=== PATIENT | male | born 1970 | race Native Hawaiian/Other Pacific Islander ===

== ENCOUNTER 2016-10-04 08:34 | Emergency (ER) | payer OTHER ==
[2016-10-04 09:08] VITALS: O2SAT 100
[2016-10-04] MEDS ORDERED: Sodium Chloride 0.9% 1,000 ML IV ONE (09:14)
--- NOTE | 2016-10-04 09:17 | C.PDOC ---
History Of Present Illness 45 y.o male with hx prior kidney stones c/o sudden onset constant left flank pain starting 2 hours ago that radiates occasionally to llq with nausea. denies vomiting, fever, chills, dysuria, hematuria. pt reports episode of hematuria about 10 days ago, and pmd sent him for a renal ultrasound, with no stone seen; and pt taking cipro daily since then. ultrasound from year prior showed 8 mm stone in kidney. Time Seen by Provider: 10/04/16 08:51 Chief Complaint (Nursing): Male Genitourinary History Per: Patient History/Exam Limitations: no limitations Onset/Duration Of Symptoms: Hrs (2) Current Symptoms Are (Timing): Worse Severity: Moderate Quality Of Discomfort: "Pain" Associated Symptoms: Nausea, Back Pain. denies: Fever, Chills, Vomiting Alleviating Factors: None Recent travel outside of the [place]: No Past Medical History Reviewed: Historical Data, Nursing Documentation, Vital Signs Vital Signs: Last Vital Signs Temp 98.2 F 10/04/16 12:45 Pulse 75 10/04/16 12:45 Resp 16 10/04/16 12:45 BP 128/63 10/04/16 12:45 Pulse Ox 100 10/04/16 12:45 - Medical History PMH: Kidney Stones, Chronic Kidney Disease Surgical History: No Surg Hx Family History: States: Unknown Family Hx - Social History Hx Alcohol Use: Yes Hx Substance Use: No Review Of Systems Constitutional: Negative for: Fever, Chills Cardiovascular: Negative for: Chest Pain Respiratory: Negative for: Cough, Shortness of Breath Gastrointestinal: Positive for: Nausea. Negative for: Vomiting, Abdominal Pain Musculoskeletal: Positive for: Back Pain (left flank) Skin: Negative for: Rash Neurological: Negative for: Weakness, Numbness Physical Exam - Physical Exam Appears: Non-toxic, Other (in obvious pain) Skin: Warm, Dry Head: Atraumatic, Normacephalic Neck: Normal ROM Chest: No Deformity, No Tenderness Cardiovascular: Rhythm Regular, No Murmur Respiratory: Normal Breath Sounds, No Rales, No Rhonchi, No Wheezing Gastrointestinal/Abdominal: Bowel Sounds, Soft, No Tenderness, No Distention, No Guarding, No Rebound Back: Normal Inspection, CVA Tenderness (left) Extremity: No Tenderness, No Pedal Edema, No Calf Tenderness Neurological/Psych: Oriented x3, Normal Speech, Normal Cognition ED Course And Treatment - Laboratory Results Result Diagrams: 10/04/16 10:02 10/04/16 10:02 O2 Sat by Pulse Oximetry: 100 (RA) Pulse Ox Interpretation: Normal - CT Scan/US CT - Abd & Pelvis Other Rad Studies (CT/US): Read By Radiologist, Radiology Report Reviewed CT/US Interpretation: PROCEDURE: CT Abdomen and Pelvis without intravenous contrast. HISTORY: left flank pain to groin, history of renal stones. COMPARISON: None. TECHNIQUE: Multiple contiguous axial images were performed through the abdomen and pelvis without intravenous contrast. Subsequently, sagittal and coronal reformatted images were obtained. This CT exam was performed using one or more of the following dose reduction techniques: Automated exposure control, adjustment of the mA and/or kV according to patient size, and/or use of iterative reconstruction technique. FINDINGS: LOWER THORAX : 1 millimeter subpleural nodule within the right middle lobe laterally. 3 millimeter nodule within the medial aspect of the right lower lobe. LIVER: Prominent liver with diffuse fatty infiltration. Small hypodensity in the right hepatic lobe measuring 5 millimeters, too small to adequately characterize. GALLBLADDER AND BILE DUCTS: Unremarkable. PANCREAS: Unremarkable. No gross lesion or ductal dilatation. SPLEEN: Unremarkable. ADRENALS: Unremarkable. No mass. KIDNEYS AND URETERS: Left Kidney: Moderate left renal hydroureteronephrosis with 4.2 millimeter calculus in the proximal to mid left ureter. Additional 3 millimeter calculus in the lower pole of the left kidney. VASCULATURE: Unremarkable. No aortic aneurysm. BOWEL: Under distended descending and sigmoid colon. APPENDIX: Unremarkable. Normal appendix. PERITONEUM: Unremarkable. No free fluid. No free air. LYMPH NODES: Unremarkable. No enlarged lymph nodes. BLADDER: Unremarkable. REPRODUCTIVE: Prominent and heterogeneous prostate. Clinical correlation. BONES: No acute fracture. OTHER FINDINGS: None. IMPRESSION: Moderate left renal hydroureteronephrosis with 4.2 millimeter calculus in the proximal to mid left ureter. Additional 3 millimeter calculus in the lower pole of the left kidney. Additional findings as above. Medical Decision Making Medical Decision Making: pt with hx of stones (kidney) with left flank pain; will get ua, labs, ct abdomen stone protocol, ivf, antiemetic 1140 am pt feeling much better after analgesic, no pain now, abdomen soft nd nt. 1231 pm pt feeling well. pt made aware of incidental findings on ct scan in lung an liver and given copy of ct results to show to pmd for further evaluation. will d/c pt with nsaids and flomax with urinary strainer and pmd and urology follow up. Disposition Counseled Patient/Family Regarding: Studies Performed, Diagnosis, Need For Followup, Rx Given - Disposition Referrals: Dusty Mac MD [Staff Provider] - Disposition: HOME/ ROUTINE Disposition Time: 12:33 Condition: STABLE Additional Instructions: Take pain medication every 6 hours (with food). Take Flomax as prescribed. Strain all urine and keep stone to bring to urologist when it passes. Call urologist to arrange for appointment. Drink increased fluids. Return to ER for any difficulty urinating, fever, worsening pain or other concerns. Prescriptions: Ibuprofen [Motrin] 600 mg PO Q6 #30 tab Tamsulosin [Flomax] 0.4 mg PO DAILY #6 cap Instructions: Kidney Stones (ED), Renal Colic (ED) - Clinical Impression Clinical Impression: Renal colic on left side, Kidney stone on left side
[2016-10-04] MEDS ORDERED: Sodium Chloride 0.9% 1,000 ML ONE (09:26)
[2016-10-04 10:08] LABS: BASO % 0.4 % (0.0-2.0); EOS % 0.1 % (0.0-4.0); HEMOGLOBIN 14.8 g/dL (12.0-18.0); LYMPH # 0.7 K/uL (1.0-4.3); MEAN CELL VOLUME 94.2 fL (80.0-94.0); MEAN CORPUSCULAR HEMOGLOBIN 31.1 pg (27.0-31.0); MEAN PLATELET VOLUME 7.1 fL (7.2-11.7); MONO # 0.5 K/uL (0.0-0.8); MONO % 4.1 % (0.0-10.0); NEUT # 10.3 K/uL (1.8-7.0); NEUT % 89.4 % (50.0-75.0); PLATELET COUNT 279 K/uL (130-400); RBC 4.76 Mil/uL (4.40-5.90); WHITE BLOOD COUNT 11.5 K/uL (4.8-10.8)
--- NOTE | 2016-10-04 10:09 | CT ---
PROCEDURE: CT Abdomen and Pelvis without intravenous contrast HISTORY: left flank pain to groin, history of renal stones COMPARISON: None. TECHNIQUE: Multiple contiguous axial images were performed through the abdomen and pelvis without intravenous contrast. Subsequently, sagittal and coronal reformatted images were obtained. This CT exam was performed using one or more of the following dose reduction techniques: Automated exposure control, adjustment of the mA and/or kV according to patient size, and/or use of iterative reconstruction technique. FINDINGS: LOWER THORAX: 1 millimeter subpleural nodule within the right middle lobe laterally. 3 millimeter nodule within the medial aspect of the right lower lobe. LIVER: Prominent liver with diffuse fatty infiltration. Small hypodensity in the right hepatic lobe measuring 5 millimeters, too small to adequately characterize. GALLBLADDER AND BILE DUCTS: Unremarkable. PANCREAS: Unremarkable. No gross lesion or ductal dilatation. SPLEEN: Unremarkable. ADRENALS: Unremarkable. No mass. KIDNEYS AND URETERS: Left Kidney: Moderate left renal hydroureteronephrosis with 4.2 millimeter calculus in the proximal to mid left ureter. Additional 3 millimeter calculus in the lower pole of the left kidney. VASCULATURE: Unremarkable. No aortic aneurysm. BOWEL: Under distended descending and sigmoid colon. APPENDIX: Unremarkable. Normal appendix. PERITONEUM: Unremarkable. No free fluid. No free air. LYMPH NODES: Unremarkable. No enlarged lymph nodes. BLADDER: Unremarkable. REPRODUCTIVE: Prominent and heterogeneous prostate. Clinical correlation. BONES: No acute fracture. OTHER FINDINGS: None. IMPRESSION: Moderate left renal hydroureteronephrosis with 4.2 millimeter calculus in the proximal to mid left ureter. Additional 3 millimeter calculus in the lower pole of the left kidney. Additional findings as above.
[2016-10-04 10:21] LABS: ALBUMIN 4.5 g/dL (3.5-5.0)
[2016-10-04 10:23] LABS: GFR AFRICAN-AMERICAN > 60; GFR NON-AFRICAN AMERICAN > 60
[2016-10-04 10:24] LABS: ALB/GLOB RATIO 1.5 (1.0-2.1); ALT/SGPT 42 U/L (21-72); AST/SGOT 21 U/L (17-59); BLOOD UREA NITROGEN 9 mg/dL (9-20)
[2016-10-04 10:25] LABS: CALCIUM 9.7 mg/dl (8.6-10.4)
[2016-10-04 10:52] LABS: BANDS 1 % (0-2); LYMPHOCYTE 8 % (20-40); MONOCYTE 3 % (0-10); NEUTROPHIL 88 % (50-75); PLATELET ESTIMATE NORMAL (NORMAL); TOTAL CELLS COUNTED 100
[2016-10-04 11:27] LABS: URINE BILIRUBIN NEGATIVE (NEGATIVE); URINE BLOOD 3+ (NEGATIVE); URINE CLARITY Hazy (Clear); URINE COLOR Yellow (YELLOW); URINE GLUCOSE (UA) NORMAL (Normal); URINE LEUKOCYTE ESTERASE NEG Leu/uL (Negative); URINE NITRATE NEGATIVE (NEGATIVE); URINE PROTEIN 2+ mg/dL (NEGATIVE); URINE UROBILINOGEN NORMAL mg/dL (0.2-1.0)
[2016-10-04 12:47] VITALS: BP 128/63; PULSE 75; RESP 16; TEMP 98.2
== END 2016-10-04 12:45 | disposition home or self-care (01) ==
LOC: C.ER 08:34
DX: N20.0 Calculus of kidney (principal); Z87.442 Personal history of urinary calculi
CPT/HCPCS: 74176; 80053; 81001; 85025; 87086; 96361; 96374; 96375; 99285; J1885; J2405; J7040